=== PATIENT | female | born 1990 | race Caucasian/White ===

== ENCOUNTER 2023-05-24 02:44 | Outpatient (CLI) | payer OTHER, SELFPAY ==
[2023-05-24 06:06] VITALS: BP 110/63; PULSE 97; RESP 16; TEMP 36.8
[2023-05-24 06:07] VITALS: PULSE 106; O2SAT 97
[2023-05-24 06:12] VITALS: PULSE 107; O2SAT 97
[2023-05-24] MEDS: LACTATED RINGERS 1000 ML 1,000 ML IV (06:54)
[2023-05-24] MEDS: ONDANSETRON 2 MG/ML inj 4 MG IVP (06:54)
--- NOTE | 2023-05-24 08:12 | W.PM.NSTNOTE ---
NST Note NST Note NST Note: The provider's electronic signature indicates the NST is reactive/appropriate for gestational age. Reviewed NST independently. FHR 145, moderate variability, accels, one early deceleration with contraction, no variables/lates Juliet Callahan MD
--- NOTE | 2023-05-24 09:00 | PC.OBNST ---
NST Note NST Note Start: 05/24/23 05:56 Freq: ONCE Status: Active Protocol: Document 05/24/23 08:01 WK (Rec: 05/24/23 08:59 WK [id number]) NST Note 4 Para (# of births) 3 EDC 06/23/23 Gestational Age In Weeks & Days 35 Weeks & 5 Days Patient Presented with Complaint(s) of Nausea and vomiting Reactive Yes RN Shine RNC Date 05/24/[address] Callahan Date 05/24/23 OB NST charge Yes Complete NST Note via Write Note Yes The provider's electronic signature indicates the NST is reactive/appropriate for gestational age. *Note to provider: If an addendum is required, open the patient's chart and click on the note under the Nurse/Allied Health tab.
--- NOTE | 2023-06-27 12:07 | PC.OBNST ---
NST Note NST Note Start: 05/24/23 05:56 Freq: ONCE Status: Discharge Protocol: Document 05/24/23 08:01 WK (Rec: 05/24/23 08:59 WK [id number]) NST Note 4 Para (# of births) 3 EDC 06/23/23 Gestational Age In Weeks & Days 35 Weeks & 5 Days Patient Presented with Complaint(s) of Nausea and vomiting Reactive Yes RN Shine RNC Date 05/24/[address] Callahan Date 05/24/23 OB NST charge Yes Complete NST Note via Write Note Yes The provider's electronic signature indicates the NST is reactive/appropriate for gestational age. *Note to provider: If an addendum is required, open the patient's chart and click on the note under the Nurse/Allied Health tab.
== END 2023-05-24 08:30 | disposition home or self-care (01) ==
LOC: OBPHONE 02:51 → OB 05:55
PROVIDERS: PCP Family Medicine; Visit Provider Family Medicine
DX: O26.893 Other specified pregnancy related conditions, third trimester (principal); R11.2 Nausea with vomiting, unspecified; Z3A.35 35 weeks gestation of pregnancy
CPT/HCPCS: 59025; G0463; J2405; J7120

== ENCOUNTER 2023-06-21 10:15 | Inpatient (IN) | payer OTHER, SELFPAY ==
[2023-06-21] VITALS (39 sets, daily range): BP systolic 90–132; BP diastolic 54–80; PULSE 78–105; RESP 16; TEMP 36.4–37.1; O2SAT 89–100; BMI 28.0
[2023-06-21] MEDS: LACTATED RINGERS 1000 ML 1,000 ML 1025 ML IV (10:44)
--- NOTE | 2023-06-21 11:03 | PM.OBHPLI ---
OB - H&P: HPI Labor/Induction History of Present Illness Date Seen: 06/21/23 Chief Complaint: The patient is a 32 year old 4 para 3 at 39+5 weeks gestation by LMP and confirmed with 7 week US, who presents with painful regular contractions. Chief complaint: Maternity : 4 Para: 3 Narrative: Maryana Nash is a 32 year old at 39+5 weeks by LMP and confirmed with 1st trimester US who presented to labor and delivery with painful regular contractions. She initially came in last night, but no cervical change was made and she was discharged to home where she woke after a nap with significantly increased intensity of contractions. She has not had LOF. is uncomplicated, she is GBS negative, blood type AB+, rubella immune. EFW was 3272g (92%) at her 36 week visit. History of Present Dating criteria: based on LMP care: good care Ultrasounds: normal 1st trimester US and normal mid trimester US Medical complications: none Labs Blood type: AB (+) positive Rubella: immune RPR/VDLR: nonreactive GBS status: negative HBsAG: negative Review of Systems Status of ROS: Reports: 6 or more systems reviewed and unremarkable except as noted in History and below Meds Home Medications and Allergies Home Medications Medication Instructions Recorded Confirmed Type bupropion HCl 150 mg 24 hr tablet, 150 mg PO DAILY 05/24/23 06/20/23 History extended release (Wellbutrin XL) escitalopram oxalate 10 mg tablet 10 mg PO DAILY 05/24/23 06/20/23 History (Lexapro) Allergies Allergy/AdvReac Type Severity Reaction Status Date / Time No Known Drug Allergies Allergy Verified 05/24/23 08:07 OB - H&P: Exam Physical Exam: Vital signs: Temp Pulse BP Pulse Ox 98 F 103 H 113/66 98 06/21/23 10:34 06/21/23 10:34 06/21/23 10:34 06/21/23 10:33 Constitutional: Constitutional: no acute distress Comments: uncomfortable with contractions Routine HEENT Exam: Head: Present atraumatic Eye: Present EOMI and PERRL ENT: Present mucous membranes moist Routine Neck Exam: Neck: Present full ROM Routine Respiratory Exam: Respiratory: Present CTA bilaterally Routine Cardiovascular Exam: Cardiovascular: RRR Detailed Labor and Delivery Exam: Patient Gravid: Yes Dilation (cm): 4 Effacement (%): 90 Cervix position: mid Consistency: soft Contraction frequency (min): 2 Tachysystole: No Contraction intensity: Strong/Firm Fetus (Single): Station: 0 Amniotic Membrane Status: intact Routine Back/Spine/Pelvis Exam: Back/Spine: full ROM Routine Skin Exam: Present intact Routine Neurological Exam: Present alert, oriented X3 and CN II-XII intact Routine Psychiatric Exam: Present normal affect and normal thought process OB - Problem Based A/P Additional Plan (1) Active labor: Status: Acute (2) Term : Status: Acute Delivery/Labor/Induction Plan Plan: expectant management (Anticipate )
[2023-06-21 11:24] LABS: Basophils Absolute Auto 0.03 K/uL (0.00-0.30); Basophils Percent Auto 0.3 % (0.0-3.0); Eosinophils Absolute Auto 0.06 K/uL (0.00-0.50); Eosinophils Percent Auto 0.6 % (0.0-7.0); Hematocrit 35.8 % (33.0-51.0); Hemoglobin* 11.4 gm/dL (12.0-16.0); Immature Granulocytes Abs Auto 0.02 K/uL (0.00-0.30); Immature Granulocytes Pct Auto 0.2 %; Lymphocytes Percent Auto 14.9 % (20-44); Mean Corpuscular HGB Conc 32 gm/dL (32-36); Mean Corpuscular Hemoglobin 27 pg (26-34); Mean Corpuscular Volume 86 fL (80-100); Monocytes Percent Auto 4.8 % (0.0-11.0); Neutrophils Percent Auto 79.2 % (42.0-72.0); Platelet Count* 259 K/uL (140-440); RDW Coefficient of Variation % 13.1 % (11.5-15.5); Red Blood Count 4.17 m/uL (4.00-5.20); White Blood Count* 10.87 K/uL (4.50-11.00)
[2023-06-21 11:26] LABS: Slide Review Reflex No
[2023-06-21] MEDS: ROPIVACAINE 0.2% 100 ml 100 ML 12 MG EPIDURAL (11:39)
[2023-06-21] MEDS: LIDOCAINE 2% (PF) 5 ML VIAL EPIDURAL (11:53)
--- NOTE | 2023-06-21 12:24 | P.ANBPRC_ITS ---
[facility] Medical History ADHD ?F90.9 - Attention-deficit hyperactivity disorder, unspecified type (ICD-10) Asthma ?J45.909 - Unspecified asthma, uncomplicated (ICD-10) Social History What is your current living situation?: I presently have a place to live Problems where you live: no known problems In the past 12 months, utilities in danger of being shut off: no In past 12 months, lack of transportation kept you from medical appts, meetings, work, or getting things needed for daily living: no In the past 12 mos, have been you worried that your food would run out before you had money to buy more?: never true In the past 12 mos, the food you bought just didn't last and you didn't have money to buy more?: never true Smoking Status: Never smoker How often does anyone, including family, friends and others, physically hurt you : never How often does anyone, including family, friends and others, insult or talk down to you: never How often does anyone, including family, friends and others, threaten you with harm: never How often does anyone, including family, friends and others, scream or curse at you: never Meds Home Medications and Allergies Home Medications Medication Instructions Recorded Confirmed Type bupropion HCl 150 mg 24 hr tablet, 150 mg PO DAILY 05/24/23 06/21/23 History extended release (Wellbutrin XL) escitalopram oxalate 10 mg tablet 10 mg PO DAILY 05/24/23 06/21/23 History (Lexapro) Allergies Allergy/AdvReac Type Severity Reaction Status Date / Time No Known Drug Allergies Allergy Verified 05/24/23 08:07 Results Labs Labs: Laboratory Results - last 24 hr 06/21/23 11:03 WBC 10.87 RBC 4.17 Hgb 11.4 L Hct 35.8 MCV 86 MCH 27 MCHC 32 RDW Coeff of [place] 13.1 Plt Count 259 Neut % (Auto) 79.2 H Lymph % (Auto) 14.9 L [place] % (Auto) 4.8 Eos % (Auto) 0.6 Baso % (Auto) 0.3 Neut # (Auto) 8.60 H Lymph # (Auto) 1.60 [place] # (Auto) 0.50 Eos # (Auto) 0.06 Baso # (Auto) 0.03 Abs Immat Gran (auto) 0.02 Imm/Tot Granulo (auto) 0.2 Blood Type AB Positive Antibody Screen NEGATIVE Vital Signs Vital Signs: Last Vital Signs Temp 98 F 06/21/23 10:34 Pulse 92 06/21/23 12:05 BP 104/61 06/21/23 12:05 Pulse Ox 100 06/21/23 12:17 Weight: 75.296 kg Height: 163.83 cm Anesthesia Procedures Epidural Insertion Patient Location: OB Start Time: 11:15 Stop Time: 11:45 Start Date: 06/21/23 Stop Date: 06/21/23 Reason for Block: procedure for pain Patient Position: sitting Performed By: Lance Skinner Preanesthetic Checklist: IV checked, risks and benefits discussed, monitors and equipment checked, pre-op evaluation, timeout performed and anesthesia consent Prep: chlorhexidine gluconate Monitoring: blood pressure monitoring, continuous pulse oximetry and heart rate Approach: midline Vertebral Space: lumbar (1-5) Epidural Technique: ALEX saline Needle Type: Tuohy needle Injection Technique: continuous catheter Needle gauge: 17 Needle Length (cm): 10 cm Needle Insertion Depth (cm): 6 Catheter Gauge: 19 Catheter Type: multi-orifice Catheter at skin depth (cm): 12 Test Dose Result: negative and lidocaine 1.5% with epinephrine 1 to 200,000
--- NOTE | 2023-06-21 14:25 | W.PM.VAGDEL1 ---
Procedure Procedure Done: Global Intrapartal Events: None Delivery monitor: external FHT and external uterine Route of delivery: Laceration description: None Estimated blood loss (mL): 100 Anesthesia type: Epidural Narrative: The patient is a 32 year-old admitted on 06/21/2023 at 39 Weeks, 5 Days gestation for active labor.? Cervical exam on admission was 4.5 cm/90 % effaced/0 station with membranes intact in vertex presentation.? Contractions were every 2-3 minutes.? heart rate demonstrated baseline 145 bpm with moderate variability, + accelerations, - decelerations; a category 1 tracing.? SROM occurred at 1219 with clear fluid. ? Labor Analgesia:? epidural ? Pitocin:? post delivery ? Labor onset:? 0815 ? Complete:? 1308 ? Pushing:? 1311 ? heart tones during second stage were category 2. ? At 1358 a viable female infant delivered in vertex OA presentation over intact perineum via spontaneous vaginal delivery.? Infant was placed on maternal abdomen.? Cord was clamped and cut after a 30-60 second delay.? Nose and mouth were bulb suctioned.? weight pending.? 7 at 1 minute and 8 at 5 minutes.? Shoulder dystocia: no.? Nuchal cord: no. ? Placenta delivered spontaneously and complete at 1402 with a 3 vessel cord. ? Mother and infant were stable after delivery. ? Lacerations:? none. ? Blood loss: 100 mL. Blood loss measurement type: QBL ? Sponge and needles counts are correct. Infant Infant Gender: Female presentation: vertex Placental Delivery Description: Spontaneous Cord Description: 3 Vessels
[2023-06-21] MEDS: ACETAMINOPHEN 500 MG TABLET 1000 MG PO (17:30)
[2023-06-22 00:20] VITALS: BP 113/75; PULSE 80; RESP 18; TEMP 36.4
[2023-06-22] MEDS: IBUPROFEN 600 MG TABLET PO ×3 (02:23→14:01)
[2023-06-22 04:24] VITALS: BP 107/74; PULSE 76; RESP 18; TEMP 36.1
[2023-06-22] MEDS: ACETAMINOPHEN 500 MG TABLET 1000 MG PO ×2 (04:28→09:43)
[2023-06-22 07:12] LABS: Hemoglobin* 10.5 gm/dL (12.0-16.0)
[2023-06-22 07:41] VITALS: BP 109/73; PULSE 90; RESP 12; TEMP 36.4
[2023-06-22] MEDS: DOCUSATE SODIUM 100 MG CAPSULE PO (07:55)
--- NOTE | 2023-06-22 08:00 | P.DS_ITS ---
DS: Providers Provider Date Seen: 06/22/23 Date of admission: 06/21/23 10:15 Primary care physician: Thania Sparks MD Admitting Clinician: Thania Sparks MD Attending Physician on discharge: Thania Sparks MD Exam Narrative: Exam Narrative: Gen: alert, pleasant, NAD Heart: RRR, no murmurs Lungs: CTA b/l Abd: soft; fundus palpated at level of umbilicus and is firm Neuro: alert and oriented, moves all extremities, no focal deficits Const: Vital Signs, click to edit/add: Vital Signs - 24 hr 06/21/23 10:33 06/21/23 10:34 06/21/23 10:34 Temperature 98 F Pulse Rate 103 H Pulse Rate [Blood Pressure Cuff] Respiratory Rate Blood Pressure 113/66 Blood Pressure [Ri ght Arm] Pulse Oximetry 98 06/21/23 11:27 06/21/23 11:32 06/21/23 11:37 Temperature Pulse Rate Pulse Rate [Blood Pressure Cuff] Respiratory Rate Blood Pressure Blood Pressure [Ri ght Arm] Pulse Oximetry 100 100 100 06/21/23 11:38 06/21/23 11:39 06/21/23 11:41 Temperature Pulse Rate 93 83 Pulse Rate [Blood Pressure Cuff] Respiratory Rate Blood Pressure 116/69 113/80 Blood Pressure [Ri ght Arm] Pulse Oximetry 89 06/21/23 11:42 06/21/23 11:43 06/21/23 11:45 Temperature Pulse Rate 91 94 Pulse Rate [Blood Pressure Cuff] Respiratory Rate Blood Pressure 113/71 113/67 Blood Pressure [Ri ght Arm] Pulse Oximetry 100 06/21/23 11:47 06/21/23 11:49 06/21/23 11:51 Temperature Pulse Rate 80 85 87 Pulse Rate [Blood Pressure Cuff] Respiratory Rate Blood Pressure 112/70 113/74 105/73 Blood Pressure [Ri ght Arm] Pulse Oximetry 99 06/21/23 11:52 06/21/23 11:53 06/21/23 11:55 Temperature Pulse Rate 90 Pulse Rate [Blood Pressure Cuff] Respiratory Rate Blood Pressure 107/67 102/66 Blood Pressure [Ri ght Arm] Pulse Oximetry 100 06/21/23 11:57 06/21/23 11:58 06/21/23 11:59 Temperature Pulse Rate 87 98 Pulse Rate [Blood Pressure Cuff] Respiratory Rate Blood Pressure 97/54 L 90/56 L Blood Pressure [Ri ght Arm] Pulse Oximetry 100 06/21/23 12:02 06/21/23 12:03 06/21/23 12:05 Temperature Pulse Rate 103 H 89 92 Pulse Rate [Blood Pressure Cuff] Respiratory Rate Blood Pressure 98/62 101/61 104/61 Blood Pressure [Ri ght Arm] Pulse Oximetry 100 06/21/23 12:07 06/21/23 12:12 06/21/23 12:17 Temperature Pulse Rate Pulse Rate [Blood Pressure Cuff] Respiratory Rate Blood Pressure Blood Pressure [Ri ght Arm] Pulse Oximetry 100 100 100 06/21/23 12:30 06/21/23 12:30 06/21/23 12:37 Temperature 98.7 F Pulse Rate 93 88 Pulse Rate [Blood Pressure Cuff] Respiratory Rate Blood Pressure 95/59 L 103/55 L Blood Pressure [Ri ght Arm] Pulse Oximetry 06/21/23 12:52 06/21/23 13:08 06/21/23 14:07 Temperature Pulse Rate 78 102 H 90 Pulse Rate [Blood Pressure Cuff] Respiratory Rate Blood Pressure 90/55 L 104/60 109/76 Blood Pressure [Ri ght Arm] Pulse Oximetry 06/21/23 14:17 06/21/23 14:22 06/21/23 14:53 Temperature Pulse Rate 82 90 86 Pulse Rate [Blood Pressure Cuff] Respiratory Rate Blood Pressure 104/75 106/71 132/59 L Blood Pressure [Ri ght Arm] Pulse Oximetry 06/21/23 15:07 06/21/23 15:23 06/21/23 15:37 Temperature Pulse Rate 86 98 85 Pulse Rate [Blood Pressure Cuff] Respiratory Rate Blood Pressure 120/63 117/59 L 108/72 Blood Pressure [Ri ght Arm] Pulse Oximetry 06/21/23 15:52 06/21/23 20:16 06/22/23 00:20 Temperature 97.6 F 97.6 F Pulse Rate 96 Pulse Rate [Blood Pressure Cuff] 80 80 Respiratory Rate 16 18 Blood Pressure 114/70 Blood Pressure [Ri ght Arm] 98/64 113/75 Pulse Oximetry 06/22/23 04:24 06/22/23 07:41 Temperature 97 F L 97.5 F L Pulse Rate Pulse Rate [Blood Pressure Cuff] 76 90 Respiratory Rate 18 12 Blood Pressure Blood Pressure [Ri ght Arm] 107/74 109/73 Pulse Oximetry OB - DS: Summary Hospital Course Hospital Course: The patient is a 32 year old G 4 P 4 at 39.5 weeks gestation that was admitted to the Center on 06/21/23 for active labor. She had an uncomplicated vaginal delivery. She delivered a viable female ; no perineal lacerations. the patient has done well. Bleeding has been manageable - not passing clots. She is breast feeding. [place] Gender: Female Time Spent with Patient Time attestation: Total time spent providing and/or coordinating discharge services: Discharge Plan Discharge Disposition: Home, Self-Care Date of Admission: 06/21/23 10:15 Primary Care Provider: Thania Sparks Condition: Stable Anticipated Discharge Date/Time: 06/22/23 14:00 Discharge Medications: Continued escitalopram oxalate [Lexapro] 10 mg tablet 10 mg PO DAILY bupropion HCl [Wellbutrin XL] 150 mg tablet extended release 24 hr 150 mg PO DAILY Discharge Orders: Discharge Order (Routine); Ordered 06/22/23 Ordered By: Nicki Robles Patient Education: OB Vaginal/Breast Feeding Follow Up Appointments: Thania Sparks MD [Primary Care Provider] - Forms: [email or web address] Info Instructions Discharge Comments: follow up with PCP/OB provider, Dr. Sparks, in 6 weeks or sooner if needed
--- NOTE | 2023-06-22 12:09 | PM.ANPOST ---
Post Anesthesia Note Post Anesthesia Note Patient seen: Inpatient Respiratory Status: adequate Cardiovascular Status: adequate Mental Status: baseline Pain: adequate Temp: baseline Anesthetic awareness: N/A Complications: none Follow care: none
[2023-06-22 13:58] VITALS: BP 105/67; PULSE 84; RESP 16; TEMP 36.7
[2023-06-23 17:35] LABS: Rapid Plasma Reagin (RPR) Non Reactive (Non Reactive)
== END 2023-06-22 15:50 | disposition home or self-care (01) | DRG 560 ==
LOC: OB OUT 10:15 → OB 10:15
PROVIDERS: Admitting Provider Family Medicine; PCP Family Medicine; Visit Provider Family Medicine
DX: O99.344 Other mental disorders complicating childbirth (principal); F90.9 Attention-deficit hyperactivity disorder, unspecified type; Z3A.39 39 weeks gestation of pregnancy; Z37.0 Single live birth
CPT/HCPCS: 01967; 36415; 59025; 85018; 85025; 86592; 86850; 86900; 86901; G0463; A9270; J2270; J2371; J2795; J7120